=== PATIENT | female | born 1995 | race African-American/Black ===

== ENCOUNTER 2017-02-10 11:42 | Emergency (ER) | payer OTHER ==
[~2017-02-10] VITALS: Ht 172.7 cm; Wt 102.9 kg
[2017-02-10 11:49] VITALS: TEMP 36.5; Ht 172.7 cm; Wt 102.9 kg
[2017-02-10] MEDS ORDERED: ONDANSETRON INJ 2 MG/ML 2 ML VIAL IV STA (12:04)
[2017-02-10] MEDS ORDERED: SODIUM CHLORIDE 0.9% 1000ML 1,000 ML IV STA (12:04)
[2017-02-10] MEDS ORDERED: MoRPHine SULFATE 4 MG/ML 1 ML CARP\\VIAL IV PRN (12:15)
--- NOTE | 2017-02-10 12:18 | EMERGENCY ROOM VISIT NOTE ---
History Report prepared by Amalia: Leesa Do Under the Supervision of: Dr. Mohan Neely D.O. First contact with patient: 11:53 Chief Complaint: VOMITING Stated Complaint: ALCOHOL POISONING History of Present Illness The patient is a 21 year old female who presents to the Emergency Room with complaints of constant vomiting starting 0200 today. The patient had been drinking alcohol yesterday. She states she drank "2 cups worth of straight alcohol". Since 0200, she has been vomiting. She has vomited 20-30 times. The vomit appears bright yellow. She has not had any blood in her vomit. She is now also having constant abdominal pain which started after the vomiting. She describes the pain as cramping. She rates her discomfort as a 10/10 in severity. She has burning in her throat which worsens with drinking water. She denies any back pain, urinary symptoms, or headache. She denies any other drug use yesterday. She patient admits to tobacco and daily marijuana use. She has not had cyclic vomiting from marijuana before. She last used marijuana 2 days ago. She denies any medical problems and is not on any daily medications. She denies any previous surgeries. Her last menstrual period was 8 days ago. She denies any chance of . She is here visiting her sister who is a student. Source of History: patient Onset: 0200 Position: other (global) Quality: other (vomiting) Timing: constant Associated Symptoms: + sorethroat, + nausea, + abdominal pain, No headache, No back pain, No urinary symptoms Review of Systems See HPI for pertinent positives & negatives. A total of 10 systems reviewed and were otherwise negative. Past Medical & Surgical Medical Problems: (1) No Known Active Medical Problems Family History No pertinent family history stated. Social History Smoking Status: Current Every Day Smoker Marital Status: single Current/Historical Medications No Active Prescriptions or Reported Meds Allergies Coded Allergies: No Known Allergies (Unverified , 02/10/17) Physical Exam Vital Signs Date Time Temp Pulse Resp B/P (MAP) Pulse Ox O2 Delivery O2 Flow Rate FiO2 02/10/17 14:30 69 20 142/62 100 02/10/17 13:28 60 20 114/67 98 Room Air 02/10/17 12:22 72 20 141/70 98 Room Air 02/10/17 11:49 36.5 93 18 122/72 99 Room Air Physical Exam GENERAL: Patient is awake, alert, and somewhat anxious appearing, appears to be uncomfortable. EYES: The conjunctivae are clear. The pupils are round and reactive. EARS, NOSE, MOUTH AND THROAT: The nose is without any evidence of any deformity. Mucous membranes are moist tongue is midline NECK: The neck is nontender and supple. RESPIRATORY: Normal respiratory effort is noted there is no evidence of wheezing rhonchi or rales CARDIOVASCULAR: Regular rate and rhythm noted there no murmurs rubs or gallops normal S1 normal S2 GASTROINTESTINAL: The abdomen is mildly distended, but soft. Tenderness in the epigastric region. No guarding or rigidity noted. BACK: No midline tenderness or or step-off noted range of motion in flexion extension as well as rotation no signs of muscle spasm noted MUSCULOSKELETAL/EXTREMITIES: There is no evidence of gross deformity full range of motion is noted in the hips and shoulders SKIN: There is no obvious evidence of any rash. There are no petechiae, pallor or cyanosis noted. NEUROLOGIC: Patient is awake alert and oriented x3 Medical Decision & Procedures ER Provider Diagnostic Interpretation: X-ray results as stated below per interpretation by me and the radiologist. ABDOMEN 2VIEW W/PA CHEST RTN CLINICAL HISTORY: 21 years-old Female presenting with ABDOMINAL PAIN/GI, abdominal pain, vomiting, drinking much alcohol last night. TECHNIQUE: PA view of the chest and supine and upright views of the abdomen were obtained. COMPARISON: None. FINDINGS: Cardiomediastinal silhouette normal. Lungs and pleural spaces clear. Few mildly distended loops of small bowel noted in the left upper abdomen. No convincing evidence of bowel obstruction. No evidence of free intraperitoneal gas, pneumatosis, or portal venous gas. Osseous structures normal. IMPRESSION: 1. No acute cardiopulmonary disease. 2. Few mildly distended loops of small bowel in the left upper abdomen. Differential considerations include mild regional ileus or normal gaseous distention. Electronically signed by: Honorio Carrero M.D. 02/10/2017 1:09 PM Dictated Date/Time: 02/10/2017 1:07 PM Laboratory Results 02/10/17 12:05 Red Blood Count 4.44, Mean Corpuscular Volume 89.9, Mean Corpuscular Hemoglobin 30.0, Mean Corpuscular Hemoglobin Concent 33.3, Mean Platelet Volume 10.2, Neutrophils (%) (Auto) 85.4, Lymphocytes (%) (Auto) 10.0, Monocytes (%) (Auto) 4.2, Eosinophils (%) (Auto) 0.0, Basophils (%) (Auto) 0.2, Neutrophils # (Auto) 11.31, Lymphocytes # (Auto) 1.33, Monocytes # (Auto) 0.55, Eosinophils # (Auto) 0.00, Basophils # (Auto) 0.02 02/10/17 12:05 Test 02/10/17 12:05 02/10/17 12:20 White Blood Count 13.24 K/uL (4.8-10.8) Red Blood Count 4.44 M/uL (4.2-5.4) Hemoglobin 13.3 g/dL (12.0-16.0) Hematocrit 39.9 % (37-47) Mean Corpuscular Volume 89.9 fL (80-100) Mean Corpuscular Hemoglobin 30.0 pg (25-34) Mean Corpuscular Hemoglobin Concent 33.3 g/dl (32-36) Platelet Count 327 K/uL (130-400) Mean Platelet Volume 10.2 fL (7.4-10.4) Neutrophils (%) (Auto) 85.4 % Lymphocytes (%) (Auto) 10.0 % Monocytes (%) (Auto) 4.2 % Eosinophils (%) (Auto) 0.0 % Basophils (%) (Auto) 0.2 % Neutrophils # (Auto) 11.31 K/uL (1.4-6.5) Lymphocytes # (Auto) 1.33 K/uL (1.2-3.4) Monocytes # (Auto) 0.55 K/uL (0.11-0.59) Eosinophils # (Auto) 0.00 K/uL (0-0.5) Basophils # (Auto) 0.02 K/uL (0-0.2) RDW Standard Deviation 42.0 fL (36.4-46.3) RDW Coefficient of Variation 12.9 % (11.5-14.5) Immature Granulocyte % (Auto) 0.2 % Immature Granulocyte # (Auto) 0.03 K/uL (0.00-0.02) Anion Gap 7.0 mmol/L (3-11) Est Creatinine Clear Calc Drug Dose 184.6 ml/min Estimated GFR () 150.0 Estimated GFR (Non- 129.4 BUN/Creatinine Ratio 20.5 (10-20) Calcium Level 8.7 mg/dl (8.5-10.1) Total Bilirubin 0.3 mg/dl (0.2-1) Direct Bilirubin < 0.1 mg/dl (0-0.2) Aspartate Amino Transf (AST/SGOT) 11 U/L (15-37) Alanine Aminotransferase (ALT/SGPT) 23 U/L (12-78) Alkaline Phosphatase 69 U/L (45-117) Total Protein 8.4 gm/dl (6.4-8.2) Albumin 4.0 gm/dl (3.4-5.0) Lipase 125 U/L (73-393) Human Chorionic Gonadotropin, Qual NEG (NEG) Urine Color YELLOW Urine Appearance CLOUDY (CLEAR) Urine pH 7.5 (4.5-7.5) Urine Specific [place] 1.027 (1.000-1.030) Urine Protein NEG (NEG) Urine Glucose (UA) NEG (NEG) Urine Ketones NEG (NEG) Urine Occult Blood NEG (NEG) Urine Nitrite NEG (NEG) Urine Bilirubin NEG (NEG) Urine Urobilinogen NEG (NEG) Urine Leukocyte Esterase SMALL (NEG) Urine WBC (Auto) /hpf (0-5) Urine RBC (Auto) /hpf (0-4) Urine Hyaline Casts (Auto) /lpf (0-5) Urine Epithelial Cells (Auto) /lpf (0-5) Urine Bacteria (Auto) (NEG) Urine RBC 0-4 /hpf (0-4) Urine WBC 1-5 /hpf (0-5) Urine Epithelial Cells >30 /lpf (0-5) Urine Renal Epithelial Cells /lpf (0-5) Urine Bacteria 1+ (NEG) Urine Trichomonas PRESENT (NONE PRSENT) Laboratory results per my review. Medications Administered Medications (Trade) Dose Ordered Sig/Caron Route Start Time Stop Time Status Last Admin Dose Admin Sodium Chloride 1,000 ml @ 999 mls/hr Q1H1M STAT IV 02/10/17 12:04 02/10/17 13:04 DC 02/10/17 12:10 999 MLS/HR Ondansetron HCl (Zofran Inj) 4 mg NOW STAT IV 02/10/17 12:04 02/10/17 12:06 DC 02/10/17 12:13 4 MG Morphine Sulfate (MoRPHine SULFATE INJ) 4 mg Q15M PRN IV 02/10/17 12:15 02/10/17 15:22 DC 02/10/17 12:13 4 MG Pantoprazole Sodium (Protonix Tab) 40 mg NOW STAT PO 02/10/17 13:12 02/10/17 13:13 DC 02/10/17 13:26 40 MG Al Hydroxide/Mg Hydroxide (Maalox Susp) 30 ml NOW STAT PO 02/10/17 13:12 02/10/17 13:13 DC 02/10/17 13:26 30 ML Ondansetron HCl (ZOFRAN ODT 4MG Home Pack) 1 homepack UD ONCE PO 02/10/17 13:30 02/10/17 13:31 DC 02/10/17 14:23 1 HOMEPACK ED Course 1157: The patient was evaluated in room B6. A complete history and physical examination were performed. 1204: Zofran Inj 4 mg IV, NSS 1000 ml @ 999 mls/hr IV. 1215: Morphine Sulfate 4 mg IV. 1312: Maalox Susp 30 ml PO, Protonix Tab 40 mg PO. 1323: Upon reevaluation, the patient is feeling better. I discussed the results and treatment plan with her. She verbalized agreement of the treatment plan. She was discharged home. 1330: Ondansetron HCl 1 homepack PO. Medical Decision Prior records/ancillary studies reviewed. Triage Nursing notes reviewed. The patient's history was concerning for nausea, vomiting, and abdominal pain. Differential diagnosis: Etiologies such as gastroenteritis, food borne illness, infections, appendicitis , diverticulitis, inflammatory bowel disease, obstruction, GI bleed, biliary pathology, as well as others were entertained. The patient is a 21-year-old female who presented to the emergency department for an evaluation of abdominal pain and nausea vomiting. The patient states that she drank a significant amount of alcohol last evening and is been having intractable nausea and vomiting since. The patient's abdominal pain was epigastric. She did not have a physical exam consistent with an acute surgical abdomen AND the amount of emesis she experienced I was very concerned so radiographic studies were obtained. There is no free air. The patient was treated with IV fluids IV pain medicine and IV antiemetics. She was feeling much better on subsequent reevaluation. Her abdominal pain resolved. I discussed the patient's laboratory radiographic studies with her. She was encouraged to drink plenty clear liquids and avoid any further alcohol beverages. She was also encouraged to follow-up with her family doctor and return to the emergency apartment immediately if symptoms change worsen or the need arises. Medication Reconcilliation Current Medication List: was personally reviewed by me Blood Pressure Screening Patient's blood pressure: Normal blood pressure Blood pressure disposition: Did not require urgent referral Impression Primary Impression: Nausea Additional Impressions: Vomiting Abdominal pain Alcoholic gastritis Scribe Attestation The scribe's documentation has been prepared under my direction and personally reviewed by me in its entirety. I confirm that the note above accurately reflects all work, treatment, procedures, and medical decision making performed by me. Departure Information Dispostion Home / Self-Care Prescriptions No Active Prescriptions or Reported Meds Referrals No Doctor, Assigned (PCP) Forms HOME CARE DOCUMENTATION FORM, IMPORTANT VISIT INFORMATION Patient Instructions ED Nausea Vomiting, Gastritis, My [facility] Additional Instructions Avoid any further alcoholic beverages. Drink plenty clear liquids including Gatorade and Pedialyte. Continue all medications as prescribed. Try using Tylenol as directed for pain. Return to the emergency department immediately symptoms change worsen or the need arises. Consider using an [id number] medication for stomach acid such as Prilosec. Continue using Maalox or times as directed for symptomatically relief. Follow-up with your family doctor soon as possible. Problem Qualifiers Additional Impressions: Vomiting Vomiting type: unspecified Vomiting Intractability: non-intractable Nausea presence: with nausea Qualified Codes: R11.2 - Nausea with vomiting, unspecified Abdominal pain Abdominal location: epigastric Qualified Codes: R10.13 - Epigastric pain Alcoholic gastritis Chronicity: acute Gastritis bleeding: presence of bleeding unspecified Qualified Codes: K29.20 - Alcoholic gastritis without bleeding
[2017-02-10 12:20] LABS: BASO % 0.2 %; BASO ABS # 0.02 K/uL (0-0.2); COMPLETE YES; HEMATOCRIT 39.9 % (37-47); IG% 0.2 %; LYMPH ABS # 1.33 K/uL (1.2-3.4); MEAN CELL VOLUME 89.9 fL (80-100); MEAN CORPUSCULAR HGB CONC 33.3 g/dl (32-36); MEAN PLATELET VOLUME 10.2 fL (7.4-10.4); MONO % 4.2 %; NEUT % 85.4 %; PLATELET COUNT 327 K/uL (130-400); RED BLOOD COUNT 4.44 M/uL (4.2-5.4); WHITE BLOOD COUNT 13.24 K/uL (4.8-10.8)
[2017-02-10 12:34] LABS: REVIEW REQ? YES; URINE APPEARANCE CLOUDY (CLEAR); URINE BILIRUBIN NEG (NEG); URINE COLOR YELLOW; URINE NITRITE NEG (NEG); URINE PH 7.5 (4.5-7.5); URINE SPECIFIC GRAVITY 1.027 (1.000-1.030); UROBILINOGEN NEG (NEG)
[2017-02-10 12:36] LABS: SULFASALICYLIC ACID NEG (NEG)
[2017-02-10 12:40] LABS: ALT/SGPT 23 U/L (12-78); AST/SGOT 11 U/L (15-37); BLOOD UREA NITROGEN 12 mg/dl (7-18); BUN/CREATININE RATIO 20.5 (10-20); CALCIUM 8.7 mg/dl (8.5-10.1); CARBON DIOXIDE 26 mmol/L (21-32); CHLORIDE 109 mmol/L (98-107); GLUCOSE 118 mg/dl (70-99); SODIUM 142 mmol/L (136-145)
[2017-02-10 12:42] LABS: ALKALINE PHOSPHATASE 69 U/L (45-117)
[2017-02-10 12:43] LABS: PREG INTERNAL NEGATIVE QC NEG CLEAR BACKGROUND; PREG INTERNAL POSITIVE QC POS CONTROL LINE
[2017-02-10 12:51] LABS: MANUAL MICROSCOPIC REQUIRED? YES; URINE BACTERIA 1+ (NEG); URINE RBC 0-4 /hpf (0-4); URINE TRICHOMONAS PRESENT (NONE PRSENT)
--- NOTE | 2017-02-10 13:10 | DIAGNOSTIC IMAGING REPORT ---
ABDOMEN 2VIEW W/PA CHEST RTN CLINICAL HISTORY: 21 years-old Female presenting with ABDOMINAL PAIN/GI, abdominal pain, vomiting, drinking much alcohol last night. TECHNIQUE: PA view of the chest and supine and upright views of the abdomen were obtained. COMPARISON: None. FINDINGS: Cardiomediastinal silhouette normal. Lungs and pleural spaces clear. Few mildly distended loops of small bowel noted in the left upper abdomen. No convincing evidence of bowel obstruction. No evidence of free intraperitoneal gas, pneumatosis, or portal venous gas. Osseous structures normal. IMPRESSION: 1. No acute cardiopulmonary disease. 2. Few mildly distended loops of small bowel in the left upper abdomen. Differential considerations include mild regional ileus or normal gaseous distention. Electronically signed by: Honorio Carrero M.D. 02/10/2017 1:09 PM Dictated Date/Time: 02/10/2017 1:07 PM
[2017-02-10] MEDS ORDERED: ALUMINUM/MAGNESIUM SUSP 30 ML UDC PO STA (13:12)
[2017-02-10] MEDS ORDERED: PANTOprazole SOD 40 MG TAB PO STA (13:12)
[2017-02-10] MEDS ORDERED: ONDANSETRON HOME PACK 4MG OD TAB PO ONE (13:30)
[2017-02-10 14:30] VITALS: BP 142/62; PULSE 69; O2SAT 100
== END 2017-02-10 14:30 | disposition home or self-care (01) ==
LOC: C.EDB 11:45
DX: K29.20 Alcoholic gastritis without bleeding (principal); F17.200 Nicotine dependence, unspecified, uncomplicated